=== PATIENT | female | born 1960 | race Caucasian/White ===

== ENCOUNTER → 2018-02-22 | Outpatient (CLI) | payer BC ==
[~2018-02-22] MED LIST: BUTALB-ACETAMI1 EACH PO; CHLORHEXIDINE118 ML; FIBER625 MG PO; FLUOXETINE HCL20 MG PO; GABAPENTIN300 MG PO; HYDROXYCHLOROQ200 MG PO; HYDROXYZINE HCL10 MG PO; METOPROLOL TART25 MG PO; MONTELUKAST SOD10 MG PO; NORCO 7.5-3251 EACH PO; PREDNISONE5 MG PO; SUMATRIPTAN SUC25 MG PO; TIZANIDINE HCL4 M1 PO; TUMS ULTRA400 MG PO; VITAMIN D34000 UNIT
--- NOTE | 2018-02-22 18:29 | Diagnostic Imaging Report ---
Exam: Pain History: Trauma Comparison: None. Findings: No fracture or malalignment. Joint spaces preserved. No abnormal soft tissue calcification or soft tissue defect. Impression: No acute osseous abnormality Signed by: Dr. Justin Mack M.D. on 02/22/2018 6:26 PM
== END ==
LOC: RAD 16:37
PROVIDERS: ATTEND Internal Medicine
DX: M79.645 Pain in left finger(s) (principal)

== ENCOUNTER → 2018-10-19 | Day surgery (SDC) | payer BC ==
[~2018-10-19] MED LIST changes: +BUPIVACAINE 0.25%/EPI 30ML SDV INJ ONE; +DEXAMETHASONE SOD PHOS INJ 4 MG/ML VIAL ONE; +ESTROVEN MAX400 MCG PO; +FENTANYL CITRATE/PF 100MCG/2 ML INJ ONE; +FOLIC ACID1 MG PO; +KETOROLAC TROMETHAMINE 30 MG/ML VIAL ONE; +LIDOCAINE HCL 2% LOCAL INJ 5 ML SDV VIAL INJ ONE; +MAGNESIUM OXID400 MG PO; +MIDAZOLAM HCL 2 MG/2 ML VIAL ONE; +ONDANSETRON HCL INJ 2 MG/ML VIAL ONE; +PANTOPRAZOLE SO40 MG PO; +PROPOFOL IV EMULSION 10 MG/ML 20 ML VIAL ONE; +SENNA LAX8.6 MG PO; +SEVOFLURANE INHAL SOLN 250 ML PEN BTL ONE; +ULTRAM 50MG50 MG PO; +VITAMIN B-121000 MCG SL; +ZOFRAN4 MG SL
--- OUTSIDE RECORDS SUMMARY | 2018-10-19 09:23 | XMS REPORT ---
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 Allergies, Adverse Reactions, Alerts This patient has no known allergies or adverse reactions. Medications This patient has no known medications. Results Test Description Test Time Test Comments Text Results Atomic Results Result Comments FINGER LEFT [place] [address] Patient Name: RITU GABRIEL MR #: [id number] : 1960 Age/Sex: 57/F Req #: [id number] Adm Physician: Ordered by: YOVANA JOY MD Report #: [id number] Location: RAD Room/Bed: Procedure: [id number] DX/FINGER LEFT Exam Date: 02/22/18 Exam Time: 1650 REPORT STATUS: Signed Exam: Pain History: Trauma Comparison: None. Findings: No fracture or malalignment. Joint spaces preserved. No abnormal soft tissue calcification or soft tissue defect. Impression: No acute osseous abnormality Signed by: Dr. Melissa Hoskins M.D. on 02/22/2018 6:26 PM Dictated By: MELISSA HOSKINS MD 25 Transcribed By: DO on 02/22/181825 COPY TO: YOVANA JOY MD MRI PELVIS WO [place] [address] Patient Name: RITU GABRIEL MR #: [id number] : 1960 Age/Sex: 56/F Req #: [id number] Adm Physician: Ordered by: LETA HUFF MD Report #: [id number] Location: MRI Room/Bed: Procedure: [id number] MRI/MRI PELVIS WO Exam Date: 06/03/17 Exam Time: 45 REPORT STATUS: Signed ADDENDUM #1 Comparison is made to MRI abdomen and pelvis without contrast 02/10/[address] abdomen and pelvis 01/14/2017 1. Interval decrease in size of 0.7 x 0.7 cm T1 hypointense, T2 mostly isointense lesion in hepatic segment (series 4, image 37), which previously measured 1.3 x 1.3 cm on MRI dated 02/10/2017. This lesion remains indeterminate given the lack of intravenous contrast. A metastatic lesion is less likely, given the solitary nature of the finding and lack of diffusion restriction, however, may be a consideration, if the patient has recently received chemotherapy since it has decreased in size. An evolving old small hematoma or sequela of infection is also considered. No other focal hepatic lesions are identified. 2. No significant interval change in size in 2.8 x 2.8 x 4.8 cm T1 hyperintense, T2 heterogeneously hypointense well-circumscribed structure lateral to the right psoas muscle, which may represent a hematoma (previously measured 2.8 x 2.8 x 4.8 cm on MRI dated 02/10/2017). Further characterization is limited by the lack of intravenous contrast. 3 No interval change in multiple simple appearing bilateral renal cysts. 4. No interval change in 1.9 cm cystic lesion in the spleen, which may represent a cyst or hemangioma. Signed by: Dr. Shelley Jett M.D. on 06/24/2017 1:56 PM ORIGINAL REPORT EXAMINATION: MRI Abdomen with and without contrast. TECHNIQUE: Axial T1 nonfat sat in and out of phase, axial T2 fat sat, coronal T2 nonfat sat, axial DWI and ADC MR images of the abdomen were obtained. No intravenous gadolinium was given due to decreased kidney function. Axial T1 fat sat GRE noncontrast images were also obtained. Axial T1 and T2 nonfat sat, coronal T2 nonfat sat and sagittal T2 with and without fat sat MR images of the pelvis were also performed. 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 FINDINGS: LACK OF INTRAVENOUS GADOLINIUM LIMITS SENSITIVITY FOR INTRA-ABDOMINAL PATHOLOGY. LOWER THORAX: Unremarkable. LIVER: The hepatic contour is normal.. No hepa tic signal abnormality. No focal T2 hyperintense hepatic lesions or restricted diffusion. BILIARY: No ductal dilatation or filling defect. The gallbladder has an unremarkable appearance. PANCREAS: No mass or ductal dilatation. SPLEEN: Spleen in the upper limit of normal in size.. 1.8 x 1.9 cm T2 hyperintense, T1 mildly hypointense lesion in the inferior tip of the spleen (series 6, image 25 and series 10, image 26). ADRENALS: No nodules. KIDNEYS: Atrophic right kidney with cortical scarring. Left kidney is normal in size and also shows cortical scarring. There are bilateral relatively well-circumscribed T2 hyperintense, T1 hypointense cystic lesions,, with the largest in the left kidney measuring 2.8 x 2.9 cm (series 6, image 23) and the largest on the right kidney measuring 1.3 x 1.2 cm (series 6, image 22). No hydronephrosis or hydroureter. A 1.6 x 1.3 cm T1 hypointense, T2 hyperintense cystic lesion projecting into the left renal pelvis (series 6, image 28), may represent a cortical or parapelvic cyst. PERITONEUM / RETROPERITONEUM: No upper abdominal free fluid. 2.8 x 2.8 x 4.8 cm well- circumscribed, oval-shaped T1 hyperintense, heterogeneously T2 hypointense structure lateral to the right psoas muscle (series 4, image 58 and series 10, image 13). GI TRACT: The visualized bowel shows no dilation or obstruction. No intraluminal masses are identified. PELVIC ORGANS: The bladder is unremarkable. Uterus is unremarkable. T2 hyperintense nabothian cyst cervix. No adnexal masses. Rectum and mesorectum are unremarkable. LYMPH NODES:No definite intra-abdominal, retroperitoneal, pelvic or inguinal adenopathy.. VESSELS: Normal flow voids are identified.. . . BONES AND SOFT TISSUES: Levoscoliosis of the lumbar spine with associated degenerative changes. No definite lytic lesions or bone marrow abnormalities. Soft tissues are grossly unremarkable.. . IMPRESSION: 1. No defin ite evidence of recurrent or metastatic disease in the abdomen or pelvis within the limitations of this noncontrast exam. 2. 4.8 cm well- circumscribed structure lateral to the right psoas muscle may represent a hematoma. Further characterization is limited by lack of intravenous contrast. Prior films, if available, would be helpful for comparison. 3. Multiple simple appearing bilateral renal cysts. Atrophic right kidney with cortical scarring. 4. 1.9 cm cystic lesion in the inferior tip of the spleen may represent a cyst or lymphangioma. Signed by: Dr. Shelley Jett M.D. on 06/03/2017 1:42 PM Dictated By: SHELLEY JETT MD [id number] Transcribed By: DO on 06/03/17 1342 COPY TO: LETA HUFF MD MRI ABDOMEN [place] [address] Patient Name: RITU GABRIEL MR #: [id number] : 1960 Age/Sex: 56/F Req #: [id number] Adm Physician: Ordered by: LETA HUFF MD Report #: [id number] Location: MRI Room/Bed: Procedure: [id number] MRI/MRI ABDOMEN WO Exam Date: 06/03/17 Exam Time: 0945 REPORT STATUS: Signed ADDENDUM #1 Comparison is made to MRI abdomen and pelvis without contrast 02/10/[address] abdomen and pelvis 01/14/2017 1. Interval decrease in size of 0.7 x 0.7 cm T1 hypointense, T2 mostly isointense lesion in hepatic segment (series 4, image 37), which previously measured 1.3 x 1.3 cm on MRI dated 02/10/2017. This lesion remains indeterminate given the lack of intravenous contrast. A metastatic lesion is less likely, given the solitary nature of the finding and lack of diffusion restriction, however, may be a consideration, if the patient has recently received chemotherapy since it has decreased in size. An evolving old small hematoma or sequela of infection is also considered. No other focal hepatic lesions are identified. 2. No significant interval change in size in 2.8 x 2.8 x 4.8 cm T1 hyperintense, T2 heterogeneously hypointense well-circumscribed structure lateral to the right psoas muscle, which may represent a hematoma (previously measured 2.8 x 2.8 x 4.8 cm on MRI dated 02/10/2017). Further characterization is limited by the lack of intravenous contrast. 3 No interval change in multiple simple appearing bilateral renal cysts. 4. No interval change in 1.9 cm cystic lesion in the spleen, which may represent a cyst or hemangioma. Signed by: Dr. Shelley Jett M.D. on 06/24/2017 1:56 PM ORIGINAL REPORT EXAMINATION: MRI Abdomen with and without contrast. TECHNIQUE: Axial T1 nonfat sat in and out of phase, axial T2 fat sat, coronal T2 nonfat sat, axial DWI and ADC MR images of the abdomen were obtained. No intravenous gadolinium was given due to decreased kidney function. Axial T1 fat sat GRE noncontrast images were also obtained. Axial T1 and T2 nonfat sat, coronal T2 nonfat sat and sagittal T2 with and without fat sat MR images of the pelvis were also performed. 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 FINDINGS: LACK OF INTRAVENOUS GADOLINIUM LIMITS SENSITIVITY FOR INTRA-ABDOMINAL PATHOLOGY. LOWER THORAX: Unremarkable. LIVER: The hepatic contour is normal.. No hep atic signal abnormality. No focal T2 hyperintense hepatic lesions or restricted diffusion. BILIARY: No ductal dilatation or filling defect. The gallbladder has an unremarkable appearance. PANCREAS: No mass or ductal dilatation. SPLEEN: Spleen in the upper limit of normal in size.. 1.8 x 1.9 cm T2 hyperintense, T1 mildly hypointense lesion in the inferior tip of the spleen (series 6, image 25 and series 10, image 26). ADRENALS: No nodules. KIDNEYS: Atrophic right kidney with cortical scarring. Left kidney is normal in size and also shows cortical scarring. There are bilateral relatively well-circumscribed T2 hyperintense, T1 hypointense cystic lesions,, with the largest in the left kidney measuring 2.8 x 2.9 cm (series 6, image 23) and the largest on the right kidney measuring 1.3 x 1.2 cm (series 6, image 22). No hydronephrosis or hydroureter. A 1.6 x 1.3 cm T1 hypointense, T2 hyperintense cystic lesion projecting into the left renal pelvis (series 6, image 28), may represent a cortical or parapelvic cyst. PERITONEUM / RETROPERITONEUM: No upper abdominal free fluid. 2.8 x 2.8 x 4.8 cm well- circumscribed, oval-shaped T1 hyperintense, heterogeneously T2 hypointense structure lateral to the right psoas muscle (series 4, image 58 and series 10, image 13). GI TRACT: The visualized bowel shows no dilation or obstruction. No intraluminal masses are identified. PELVIC ORGANS: The bladder is unremarkable. Uterus is unremarkable. T2 hyperintense nabothian cyst cervix. No adnexal masses. Rectum and mesorectum are unremarkable. LYMPH NODES:No definite intra-abdominal, retroperitoneal, pelvic or inguinal adenopathy.. VESSELS: Normal flow voids are identified.. . . BONES AND SOFT TISSUES: Levoscoliosis of the lumbar spine with associated degenerative changes. No definite lytic lesions or bone marrow abnormalities. Soft tissues are grossly unremarkable.. . IMPRESSION: 1. No defi nite evidence of recurrent or metastatic disease in the abdomen or pelvis within the limitations of this noncontrast exam. 2. 4.8 cm well- circumscribed structure lateral to the right psoas muscle may represent a hematoma. Further characterization is limited by lack of intravenous contrast. Prior films, if available, would be helpful for comparison. 3. Multiple simple appearing bilateral renal cysts. Atrophic right kidney with cortical scarring. 4. 1.9 cm cystic lesion in the inferior tip of the spleen may represent a cyst or lymphangioma. Signed by: Dr. Shelley Jett M.D. on 06/03/2017 1:42 PM Dictated By: SHELLEY JETT MD 1356 Transcribed By: DO on 06/03/17 1342 COPY TO: LETA HUFF MD
--- OUTSIDE RECORDS SUMMARY | 2018-10-19 09:23 | XMS REPORT | Clinical Summary ---
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 Active prochlorperazine TAKE 1 TABLET 3 (COMPAZINE) 10 MG tablet (10 MG) BY 7 MOUTH EVERY 6 (SIX) HOURS NEEDED FOR NAUSEA OR VOMITING. Active sodium chloride 0.9 % Infuse 1,000 1000 mL 0 solutionIndications: mL into a 7 Dehydration venous catheter continuously. Active Problems Problem Noted Date Dehydration 07/06/2017 Social History Date Tobacco Use Types Packs/Day Years Used Never Smoker Alcohol Use Drinks/Week oz/Week Comments No Sex Assigned at Date Recorded Not on file Industry Job Start Date Occupation Not on file Not on file Not on file Travel End Travel History Travel Start No recent travel history available. Last Filed Vital Signs Not on file Plan of Treatment Health Maintenance Due Date Last Done Comments CERVICAL CANCER SCREENING 1980 BREAST CANCER SCREENING 2009 COLON CANCER SCREENING 2009 SHINGLES VACCINES (1 of 2009 2) INFLUENZA VACCINE 06/01/2018 07/03/2015, 10/18/2014, 08/31/2013, Additional history exists Results Not on fileafter 10/18/2017 Insurance Payer Benefit Subscriber ID Type Phone Address Plan / Group BCBS BCBS xxxxxxxxxxxxxx PPO CHOICE PPO/[employer] PPO Advance Directives Patient has advance care planning documents on file. For more information, pleas e contact: Ruben Gonzales [address] [place] [address]
[2018-10-19 11:02] LABS: BASOPHILS % 0.2 % (0.0-1.0); EOSINOPHILS # (AUTO) 0.9 (0.0-0.4); EOSINOPHILS % 15.3 % (0.0-6.0); HEMATOCRIT 42.5 % (34.2-44.1); LYMPHOCYTES # (AUTO) 0.7 (1.0-3.2); LYMPHOCYTES % 13.1 % (18.0-39.1); MEAN CORPUSCULAR HEMOGLOBIN 31.1 pg (28-32); MONOCYTES # (AUTO) 0.4 (0.2-0.8); MONOCYTES % 7.2 % (4.4-11.3); NEUTROPHILS # (AUTO) 3.6 (2.1-6.9); NEUTROPHILS % 63.8 % (38.7-80.0); PLATELET COUNT 176 x10e3/uL (140-360); RED BLOOD COUNT 4.38 x10e6/uL (3.6-5.1); RED CELL DISTRIBUTION WIDTH 13.3 % (11.7-14.4)
[2018-10-19 11:09] LABS: HEMOGLOBIN 13.6 g/dL (12.0-16.0)
[2018-10-19 11:19] LABS: ALBUMIN 3.5 g/dL (3.5-5.0); ALBUMIN/GLOBULIN RATIO 0.7 (0.8-2.0); ANION GAP 13.9 mmol/L (8-16); CALCIUM 8.8 mg/dL (8.4-10.2); CREATININE, SERUM 2.1 mg/dL (0.57-1.11); POTASSIUM 3.9 mmol/L (3.5-5.1)
[2018-10-19 14:10] VITALS: BP 113/68
--- NOTE | 2018-10-19 15:14 | Operative Report ---
DATE OF PROCEDURE: October 19, 2018 PREOPERATIVE DIAGNOSIS: Malfunctioning venous access port, status post colon cancer. POSTOPERATIVE DIAGNOSIS: Malfunctioning venous access port, status post colon cancer. OPERATION PERFORMED: Removal of left subclavian venous access port. ANESTHESIA: General. COMPLICATIONS: None. ESTIMATED BLOOD LOSS: Minimal. DESCRIPTION OF PROCEDURE: With the patient lying in bed in the supine position under good general anesthesia, the left chest was prepped with Betadine solution and draped in the usual manner. The area overlying the Port-A-Cath was then infiltrated with 0.25% Marcaine. An incision was made over the Port-A-Cath and carried down through the subcutaneous tissue and through the capsule of Port-A-Cath. All 4 silk sutures were then removed. The Port-A-Cath was removed in its entirety without any difficulty. After this was done, hemostasis was ascertained. The capsule of the Port-A-Cath was then reapproximated with interrupted sutures of 3-0 Vicryl. The subcutaneous tissue was approximated with 4-0 Vicryl and the skin was closed with subcuticular 5-0 Vicryl. Benzoin, Steri-Strips and dressings were applied. The sponge, lap and needle count was correct. Patient tolerated the procedure well and returned to the recovery room in stable condition. Job#: [id number] LITZ[facility]
== END | disposition home or self-care (01) ==
LOC: OR 09:20
PROVIDERS: ATTEND Surgery
DX: T82.518A Breakdown (mechanical) of other cardiac and vascular devices and implants, initial encounter (principal); C18.9 Malignant neoplasm of colon, unspecified; Y83.8 Other surgical procedures as the cause of abnormal reaction of the patient, or of later complication, without mention of misadventure at the time of the procedure; Z88.0 Allergy status to penicillin; Z88.2 Allergy status to sulfonamides; Z88.8 Allergy status to other drugs, medicaments and biological substances
CPT/HCPCS: 36415; 36590; 80053; 85025; 88300; 93005; J1100; J1885; J2001; J2250; J2405; J2704

== ENCOUNTER → 2021-03-07 | Outpatient (CLI) | payer BC ==
[~2021-03-07] MED LIST changes: -BUPIVACAINE 0.25%/EPI 30ML SDV INJ ONE; -DEXAMETHASONE SOD PHOS INJ 4 MG/ML VIAL ONE; -FENTANYL CITRATE/PF 100MCG/2 ML INJ ONE; -KETOROLAC TROMETHAMINE 30 MG/ML VIAL ONE; -LIDOCAINE HCL 2% LOCAL INJ 5 ML SDV VIAL INJ ONE; -MIDAZOLAM HCL 2 MG/2 ML VIAL ONE; -ONDANSETRON HCL INJ 2 MG/ML VIAL ONE; -PROPOFOL IV EMULSION 10 MG/ML 20 ML VIAL ONE; -SEVOFLURANE INHAL SOLN 250 ML PEN BTL ONE
== END ==
LOC: US 14:37
PROVIDERS: ATTEND Internal Medicine
DX: R31.9 Hematuria, unspecified (principal)
CPT/HCPCS: 76770

== ENCOUNTER 2022-09-17 13:00 | Outpatient (RCR) | payer BC | END 2022-09-30 | LOC: PT 13:00 | PROVIDERS: ATTEND Internal Medicine | DX: M54.50 Low back pain, unspecified (principal); M54.16 Radiculopathy, lumbar region ==

== ENCOUNTER 2022-11-26 09:52 | Outpatient (RCR) | payer BC | END 2022-12-01 | LOC: PT 09:52 | PROVIDERS: ATTEND Internal Medicine | DX: M54.50 Low back pain, unspecified (principal); M62.81 Muscle weakness (generalized) ==

== ENCOUNTER 2023-08-13 10:36 | Inpatient (IN) | payer BC ==
[~2023-08-13] VITALS: Ht 175.3 cm; Wt 68.0 kg
[2023-08-13] MEDS ORDERED: LACTATED RINGER'S 1,000 ML IV ONE (11:30)
[2023-08-13 11:55] LABS: BASOPHILS % 0.2 % (0.0-1.0); EOSINOPHILS # (AUTO) 0.1 (0.0-0.4); EOSINOPHILS % 0.7 % (0.0-6.0); HEMATOCRIT 36.1 % (34.2-44.1); HEMOGLOBIN 12.4 g/dL (12.0-16.0); LYMPHOCYTES # (AUTO) 0.8 (1.0-3.2); LYMPHOCYTES % 5.9 % (18.0-39.1); MEAN CORPUSCULAR HEMOGLOBIN 31.2 pg (28-32); MEAN CORPUSCULAR HGB CONC 34.3 g/dL (31-35); MEAN CORPUSCULAR VOLUME 90.9 fL (81-99); MONOCYTES # (AUTO) 0.7 (0.2-0.8); MONOCYTES % 5.5 % (4.4-11.3); NEUTROPHILS # (AUTO) 11.1 (2.1-6.9); NEUTROPHILS % 87.2 % (38.7-80.0); PLATELET COUNT 194 x10e3/uL (140-360); RED BLOOD COUNT 3.97 x10e6/uL (3.6-5.1); RED CELL DISTRIBUTION WIDTH 12.9 % (11.7-14.4); WHITE BLOOD COUNT 12.68 x10e3/uL (4.8-10.8)
[2023-08-13 12:13] LABS: ALANINE AMINOTRANSFERASE 18 IU/L (0-55); ALBUMIN 3.7 g/dL (3.5-5.0); ALKALINE PHOSPHATASE 80 IU/L (40-150); ANION GAP 17.3 mmol/L (8-16); BLOOD UREA NITROGEN 99 mg/dL (7-26); BUN/CREATININE RATIO 18 (6-25); CALCIUM 8.4 mg/dL (8.4-10.2); CARBON DIOXIDE 19 mmol/L (22-29); CHLORIDE 100 mmol/L (98-107); CREATINE KINASE 163 IU/L (29-168); CREATININE, SERUM 5.59 mg/dL (0.57-1.11); GLUCOSE 91 mg/dL (74-118); MAGNESIUM 4.2 MG/DL (1.3-2.1); POTASSIUM 3.3 mmol/L (3.5-5.1); SODIUM 133 mmol/L (136-145)
[2023-08-13 14:52] LABS: CLARITY,URINE SL CLOUDY (CLEAR); COLOR,URINE YELLOW (YELLOW); KETONES,URINE NEGATIVE (NEGATIVE); LEUKOCYTE ESTERASE ,URINE MODERATE (NEGATIVE); NITRITE,URINE NEGATIVE (NEGATIVE); PROTEIN,URINE DIPSTICK TRACE (NEGATIVE); URINE UROBILINOGEN 0.2 mg/dL (0.2 - 1)
[2023-08-13 15:05] LABS: AMORPHOUS SEDIMENT,URINE MODERATE (FEW); BACTERIA,URINE MANY /HPF; EPITHELIAL CELLS,URINE MODERATE /LPF; RBC,URINE 0-5 /HPF (0-5)
[2023-08-13 20:00] VITALS: BP 103/61; PULSE 70; RESP 18; TEMP 97.8; O2SAT 97
[2023-08-13] MEDS ORDERED: LEVOTHYROXINE50 MCG PO (20:16)
[2023-08-13] MEDS ORDERED: MACROBID 100 M100 MG PO (20:16)
[2023-08-13] MEDS ORDERED: NEURONTIN300 MG PO (20:16)
[2023-08-13] MEDS ORDERED: SENNA-PLUS TAB1 EACH (20:16)
[2023-08-13] MEDS ORDERED: LINZESS290 MCG PO (20:16)
[2023-08-13] MEDS ORDERED: ATORVASTATIN CA10 MG PO (20:16)
[2023-08-13 20:18] VITALS: BP 103/61; PULSE 70; RESP 18; TEMP 97.8; O2SAT 97
[2023-08-13 22:54] VITALS: BP 103/61; PULSE 70; RESP 18; TEMP 97.8; O2SAT 97
[2023-08-14] VITALS (8 sets, daily range): BP systolic 87–101; BP diastolic 56–65; PULSE 68–88; RESP 16–18; TEMP 97.8–98.1; O2SAT 96–100
[2023-08-14] MEDS ORDERED: TRAMADOL HCL 50 MG TAB PO PRN ×2 (05:15→20:30)
[2023-08-14 05:48] LABS: BASOPHILS % 0.2 % (0.0-1.0); EOSINOPHILS # (AUTO) 0.1 (0.0-0.4); EOSINOPHILS % 1.7 % (0.0-6.0); HEMATOCRIT 31.9 % (34.2-44.1); HEMOGLOBIN 10.9 g/dL (12.0-16.0); LYMPHOCYTES # (AUTO) 0.7 (1.0-3.2); LYMPHOCYTES % 8.6 % (18.0-39.1); MEAN CORPUSCULAR HEMOGLOBIN 30.8 pg (28-32); MEAN CORPUSCULAR HGB CONC 34.2 g/dL (31-35); MEAN CORPUSCULAR VOLUME 90.1 fL (81-99); MONOCYTES # (AUTO) 0.5 (0.2-0.8); MONOCYTES % 6.6 % (4.4-11.3); NEUTROPHILS # (AUTO) 6.8 (2.1-6.9); NEUTROPHILS % 82.7 % (38.7-80.0); PLATELET COUNT 157 x10e3/uL (140-360); RED BLOOD COUNT 3.54 x10e6/uL (3.6-5.1); RED CELL DISTRIBUTION WIDTH 12.7 % (11.7-14.4); WHITE BLOOD COUNT 8.23 x10e3/uL (4.8-10.8)
[2023-08-14 06:08] LABS: ALBUMIN 2.9 g/dL (3.5-5.0); ALBUMIN/GLOBULIN RATIO 0.8 (0.8-2.0); ANION GAP 15.5 mmol/L (8-16); CREATININE, SERUM 4.34 mg/dL (0.57-1.11); POTASSIUM 3.5 mmol/L (3.5-5.1)
[2023-08-14] MEDS: SODIUM CHLORIDE 0.9% 500ML 500 ML IV SCH ×2 (13:41→20:08)
[2023-08-14] MEDS: CIPROFLOXACIN 500 MG TAB PO SCH (13:41)
[2023-08-14] MEDS ORDERED: TIZANIDINE HCL4 MG PO (20:20)
[2023-08-14] MEDS ORDERED: TIZANIDINE HCL 4 MG TAB PO PRN (20:30)
[2023-08-14] MEDS ORDERED: SENNA-S TABLET PO PRN (20:30)
[2023-08-14] MEDS: GABAPENTIN 300 MG CAP PO SCH (20:53)
[2023-08-14] MEDS ORDERED: ATORVASTATIN 10 MG TAB PO SCH (21:00)
[2023-08-15] VITALS: BP 89/56; PULSE 69; RESP 18; TEMP 97.9; O2SAT 97
[2023-08-15] MEDS: SODIUM CHLORIDE 0.9% 500ML 500 ML IV SCH (04:26)
[2023-08-15 05:13] LABS: BASOPHILS % 0.3 % (0.0-1.0); EOSINOPHILS # (AUTO) 0.2 (0.0-0.4); EOSINOPHILS % 3.1 % (0.0-6.0); HEMATOCRIT 31.3 % (34.2-44.1); HEMOGLOBIN 10.5 g/dL (12.0-16.0); LYMPHOCYTES # (AUTO) 0.6 (1.0-3.2); LYMPHOCYTES % 9.8 % (18.0-39.1); MEAN CORPUSCULAR HEMOGLOBIN 30.6 pg (28-32); MEAN CORPUSCULAR HGB CONC 33.5 g/dL (31-35); MEAN CORPUSCULAR VOLUME 91.3 fL (81-99); MONOCYTES # (AUTO) 0.4 (0.2-0.8); MONOCYTES % 6.3 % (4.4-11.3); NEUTROPHILS # (AUTO) 4.7 (2.1-6.9); NEUTROPHILS % 80.3 % (38.7-80.0); PLATELET COUNT 164 x10e3/uL (140-360); RED BLOOD COUNT 3.43 x10e6/uL (3.6-5.1); RED CELL DISTRIBUTION WIDTH 12.7 % (11.7-14.4)
[2023-08-15 05:34] LABS: ANION GAP 14.5 mmol/L (8-16); CALCIUM 8.1 mg/dL (8.4-10.2); CREATININE, SERUM 3.07 mg/dL (0.57-1.11); POTASSIUM 3.5 mmol/L (3.5-5.1)
[2023-08-15] MEDS ORDERED: LEVOTHYROXINE SODIUM 50 MCG TAB PO SCH ×2 (06:00→07:30)
[2023-08-15] MEDS ORDERED: PANTOPRAZOLE SOD 40 MG TABEC PO SCH (07:30)
[2023-08-15 08:07] VITALS: BP 101/0; PULSE 66; RESP 16; TEMP 97.5; O2SAT 100
[2023-08-15 09:00] VITALS: BP 101/0; PULSE 66; RESP 16; TEMP 97.5; O2SAT 100
[2023-08-15] MEDS: GABAPENTIN 300 MG CAP PO SCH (09:27)
[2023-08-15] MEDS: MIDODRINE 2.5 MG TAB PO SCH ×2 (09:27→13:14)
[2023-08-15] MEDS: CIPROFLOXACIN 500 MG TAB PO SCH (09:28)
[2023-08-15 09:54] LABS: CREATININE,URINE RANDOM 43.12 mg/dL (47-110)
[2023-08-15 12:07] VITALS: BP 107/69; PULSE 70; RESP 16; TEMP 98; O2SAT 100
[2023-08-15] MEDS ORDERED: MIDODRINE HCL2.5 MG PO (12:31)
[2023-08-15 13:14] VITALS: BP 107/69
== END 2023-08-15 14:00 | disposition home or self-care (01) | DRG 563 ==
LOC: ER 10:43 → ERHOLD 13:33 → MED/SURG 19:41
PROVIDERS: ADMIT Family Medicine; ATTEND Family Medicine
PROC: 2W3LX1Z Immobilization of Right Lower Extremity using Splint (ICD-10-PCS; principal; 2023-08-13)
DX: S82.491A Other fracture of shaft of right fibula, initial encounter for closed fracture (principal); N17.9 Acute kidney failure, unspecified; W18.30XA Fall on same level, unspecified, initial encounter; Y92.9 Unspecified place or not applicable; I73.00 Raynaud's syndrome without gangrene; M35.9 Systemic involvement of connective tissue, unspecified; M35.00 Sjogren syndrome, unspecified; R55 Syncope and collapse; N18.9 Chronic kidney disease, unspecified; Z20.822 Contact with and (suspected) exposure to COVID-19; Z87.442 Personal history of urinary calculi
CPT/HCPCS: 36415; 51700; 70450; 71045; 80048; 80053; 81001; 82550; 82575; 83735; 84100; 84443; 84484; 85025; 87086; 87186; 93005; 99284; J7040; U0002

== ENCOUNTER 2024-10-13 09:44 | Emergency (ER) | payer BC ==
[~2024-10-13] VITALS: Ht 327.7 cm; Wt 68.0 kg
[~2024-10-13 09:44] MED LIST changes: +ATORVASTATIN CA10 MG PO; +LEVOTHYROXINE50 MCG PO; +LINZESS290 MCG PO; +MACROBID 100 M100 MG PO; +MIDODRINE HCL2.5 MG PO; +NEURONTIN300 MG PO; +SENNA-PLUS TAB1 EACH; +TIZANIDINE HCL4 MG PO
[2024-10-13 09:53] VITALS: PULSE 81; RESP 18; TEMP 97.9; O2SAT 100
== END 2024-10-13 12:09 | disposition home or self-care (01) ==
LOC: ER 09:49
DX: R42 Dizziness and giddiness (principal); S01.01XA Laceration without foreign body of scalp, initial encounter; R55 Syncope and collapse; W01.0XXA Fall on same level from slipping, tripping and stumbling without subsequent striking against object, initial encounter; Y92.89 Other specified places as the place of occurrence of the external cause; E78.5 Hyperlipidemia, unspecified; E03.9 Hypothyroidism, unspecified; K21.9 Gastro-esophageal reflux disease without esophagitis; N28.9 Disorder of kidney and ureter, unspecified; Z85.038 Personal history of other malignant neoplasm of large intestine; Z85.05 Personal history of malignant neoplasm of liver
CPT/HCPCS: 70450; 72125; 99283

== ENCOUNTER 2025-04-26 11:19 | Emergency (ER) | payer MEDICARE ==
[~2025-04-26] VITALS: Ht 172.7 cm; Wt 68.0 kg
[2025-04-26 11:25] VITALS: PULSE 84; RESP 16; TEMP 97.8; O2SAT 98
[2025-04-26] MEDS ORDERED: CEPHALEXIN500 MG PO (13:00)
[2025-04-26] MEDS: TETANUS/DIPHTHERIA TOX ADULT 0.5 ML SYR IM ONE (13:01)
== END 2025-04-26 13:21 | disposition home or self-care (01) ==
LOC: ER 11:50
DX: S51.812A Laceration without foreign body of left forearm, initial encounter (principal); W01.0XXA Fall on same level from slipping, tripping and stumbling without subsequent striking against object, initial encounter; Y93.01 Activity, walking, marching and hiking; Y92.89 Other specified places as the place of occurrence of the external cause; E03.9 Hypothyroidism, unspecified; E78.5 Hyperlipidemia, unspecified; N18.9 Chronic kidney disease, unspecified; K21.9 Gastro-esophageal reflux disease without esophagitis; Z85.038 Personal history of other malignant neoplasm of large intestine; Z85.05 Personal history of malignant neoplasm of liver
CPT/HCPCS: 73090; 90471; 90714; 99284; J0690